=== PATIENT | male | born 1990 | race African-American/Black ===

== ENCOUNTER → 2018-01-08 | Day surgery (SDC) | payer OTHER ==
[~2018-01-08] MED LIST: BUPIVACAINE HCL 0.5 % INJ/PF 30 ML SDV ONE; CEFAZOLIN 2 GM/D5W RTU 2 GM/50 ML RTUPB IV PRN; DEXAMETHASONE SOD PHOSPHATE INJ 4 MG/1 ML VIAL ONE; EPHEDRINE SULFATE INJ 50 MG/1 ML AMPULE ONE; FENTANYL CITRATE INJ/PF 100 MCG/2 ML AMPUL ONE; HYDRALAZINE HCL INJ/PF 20 MG/1 ML SDV IV ONE; HYDRALAZINE HCL INJ/PF 20 MG/1 ML SDV ONE; HYDROMORPHONE HCL INJ/PF 2 MG/ML AMPULE ONE; MIDAZOLAM 2 MG/2 ML INJ ONE; ONDANSETRON 4 MG TAB.RAPDIS ONE; ONDANSETRON 4 MG TAB.RAPDIS PO ONE; ONDANSETRON HCL INJ/PF 4 MG/2 ML SDV ONE; PROPOFOL INJ 200 MG/20 ML VIAL IV ONE
--- NOTE | 2018-01-08 07:58 | RADIOLOGY REPORT (SQ) ---
EXAM DESCRIPTION: CHEST SINGLE VIEW COMPLETED DATE/TIME: 01/08/2018 7:46 am REASON FOR STUDY: preop COMPARISON: AP chest 07/26/2014 EXAM PARAMETERS: NUMBER OF VIEWS: One view. TECHNIQUE: Single frontal radiographic view of the chest acquired. RADIATION DOSE: NA LIMITATIONS: None. FINDINGS: LUNGS AND PLEURA: No opacities, masses or pneumothorax. No pleural effusion. MEDIASTINUM AND HILAR STRUCTURES: No masses. Contour normal. HEART AND VASCULAR STRUCTURES: Heart normal in size. Normal vasculature. BONES: No acute findings. HARDWARE: None in the chest. OTHER: No other significant finding. IMPRESSION: NO ACUTE RADIOGRAPHIC FINDING IN THE CHEST. TECHNICAL DOCUMENTATION: JOB ID: [id number] [employer]- All Rights Reserved Reading location - IP/workstation name: [email or web address]
[2018-01-08 08:02] LABS: HEMATOCRIT 36.5 % (37.9-51.0); HEMOGLOBIN 12.3 g/dL (13.5-17.0); MEAN CORPUSCULAR HEMOGLOBIN 28.7 pg (27.0-33.4); MEAN CORPUSCULAR HGB CONC 33.7 g/dL (32.0-36.0); MEAN CORPUSCULAR VOLUME 85 fl (80-97); PLATELET COUNT 238 10^3/uL (150-450); RED BLOOD COUNT 4.28 10^6/uL (4.35-5.55); RED CELL DISTRIBUTION WIDTH 11.8 % (11.5-14.0)
[2018-01-08 08:14] LABS: ANION GAP 14 (5-19); BLOOD UREA NITROGEN 26 mg/dL (7-20); CALCIUM 9.8 mg/dL (8.4-10.2); CARBON DIOXIDE 28 mmol/L (22-30); CHLORIDE 103 mmol/L (98-107); GLUCOSE 98 mg/dL (75-110); POTASSIUM 4.4 mmol/L (3.6-5.0); SODIUM 145.4 mmol/L (137-145)
[2018-01-08 08:21] LABS: APPEARANCE,URINE CLEAR; BILIRUBIN,URINE NEGATIVE (NEGATIVE); COLOR,URINE YELLOW; GLUCOSE, URINE NEGATIVE (NEGATIVE); KETONES,URINE NEGATIVE (NEGATIVE); LEUKOCYTE ESTERASE,URINE NEGATIVE (NEGATIVE); NITRITE,URINE NEGATIVE (NEGATIVE); PROTEIN,URINE NEGATIVE (NEGATIVE); URINE SPECIFIC GRAVITY 1.016; UROBILINOGEN,URINE NEGATIVE mg/dL (<2.0)
[2018-01-08] MEDS: HYDRALAZINE HCL INJ/PF 20 MG/1 ML SDV IV ONE ×2 (08:35→08:55)
[2018-01-08 10:13] VITALS: BP 168/112
--- NOTE | 2018-01-08 21:52 | EKG REPORT ---
SEVERITY:- NORMAL ECG - SINUS RHYTHM : Confirmed by: Lavinia Ochoa MD 08-Jan-2018 21:50:59
== END ==
LOC: OROUT 07:07
PROVIDERS: ATTEND Orthopaedic Surgery
DX: Z01.818 Encounter for other preprocedural examination (principal)
CPT/HCPCS: 36415; 85027; 80048; 81001; 71045; 93005; 93010; S0119; J0360; J0690; J1100; J1170; J2250; J2405; J2704; J3010; J3490

== ENCOUNTER 2018-01-13 06:53 | Day surgery (SDC) | payer OTHER ==
[~2018-01-13 06:53] MED LIST changes: -BUPIVACAINE HCL 0.5 % INJ/PF 30 ML SDV ONE; +CEFAZOLIN 2 GM/D5W RTU 2 GM/50 ML RTUPB IV ONE; -CEFAZOLIN 2 GM/D5W RTU 2 GM/50 ML RTUPB IV PRN; -DEXAMETHASONE SOD PHOSPHATE INJ 4 MG/1 ML VIAL ONE; -EPHEDRINE SULFATE INJ 50 MG/1 ML AMPULE ONE; -FENTANYL CITRATE INJ/PF 100 MCG/2 ML AMPUL ONE; -HYDRALAZINE HCL INJ/PF 20 MG/1 ML SDV IV ONE; -HYDRALAZINE HCL INJ/PF 20 MG/1 ML SDV ONE; -HYDROMORPHONE HCL INJ/PF 2 MG/ML AMPULE ONE; -MIDAZOLAM 2 MG/2 ML INJ ONE; -ONDANSETRON 4 MG TAB.RAPDIS ONE; -ONDANSETRON 4 MG TAB.RAPDIS PO ONE; -ONDANSETRON HCL INJ/PF 4 MG/2 ML SDV ONE; -PROPOFOL INJ 200 MG/20 ML VIAL IV ONE
[2018-01-13] MEDS ORDERED: BUPIVACAINE HCL 0.5 % INJ/PF 30 ML SDV ONE ×2 (07:26→11:05)
[2018-01-13] MEDS ORDERED: FENTANYL CITRATE INJ/PF 100 MCG/2 ML AMPUL ONE ×2 (09:59→12:14)
[2018-01-13] MEDS ORDERED: PROPOFOL INJ 200 MG/20 ML VIAL IV ONE (09:59)
[2018-01-13] MEDS ORDERED: FENTANYL CITRATE INJ/PF 250 MCG/5 ML AMPULE ONE (09:59)
[2018-01-13] MEDS ORDERED: MIDAZOLAM 2 MG/2 ML INJ ONE (09:59)
[2018-01-13] MEDS ORDERED: FENTANYL CITRATE INJ/PF 100 MCG/2 ML AMPUL IV PRN ×3 (11:22)
[2018-01-13] MEDS ORDERED: DIPHENHYDRAMINE HCL 50 MG/ML VIAL IV PRN (11:22)
[2018-01-13] MEDS ORDERED: MEPERIDINE HCL/PF INJ 25 MG/1 ML DISP.SYRIN IV PRN (11:22)
[2018-01-13] MEDS ORDERED: MORPHINE SULFATE 10 MG/ML INJ IV PRN (11:22)
[2018-01-13] MEDS ORDERED: PROMETHAZINE HCL INJ 25 MG/1 ML VIAL IV PRN (11:22)
[2018-01-13] MEDS ORDERED: DEXMEDETOMIDINE INJ 80 MCG/20 ML VIAL IV ONE (11:30)
[2018-01-13] MEDS ORDERED: OXYCODONE HCL IR 5 MG TABLET PO PRN (11:57)
--- NOTE | 2018-01-13 12:02 | Operative Report ---
Operative Report DATE OF SURGERY: 01/13/18 PREOPERATIVE DIAGNOSIS: Left quadriceps tendon disruption OPERATION: Repair left quadriceps tendon and extensor mechanism SURGEON: SYLWIA RIELAND ANESTHESIA: GA TISSUE REMOVED OR ALTERED: Cultures to microbiology ESTIMATED BLOOD LOSS: Minimal PROCEDURE: The patient supine on the operative table left lower extremities prepped and draped in sterile fashion. The lid the existing jf are removed. The underlying laceration is opened and cultures are obtained. The laceration goes through the quadriceps tendon but does not enter the knee space. The edges were meticulously debrided. The incision and then extended proximally and medially and distally and laterally to expose the lacerated tendon. #2 FiberWire was then used to repair the quadriceps tendon in a pants over vest type fashion. A piece of polypropylene mesh is then cut to fit the anterior surface of the knee and sewed in place with interrupted Vicryl. At this point the tourniquet is deflated. The wound is irrigated. Hemostasis obtained with electrocautery. The wound is then closed in layers using interrupted Vicryl followed by nylon. A sterile compressive dressings applied and the patient's return to PACU in satisfactory condition.
--- NOTE | 2018-01-13 12:08 | Discharge Summary ---
Discharge Summary (SDC) - Discharge Final Diagnosis: Left quadriceps tendon disruption Date of Surgery: 01/13/18 Condition: Good Prescriptions: Oxycodone HCl [Oxy-Ir 5 mg Tablet] 5 mg PO Q6HP PRN #60 tablet PRN Reason: Aspirin [Aspirin 81 mg Chewable Tablet] 81 mg PO DAILY #35 tab.chew Referrals: JAVY MANJARREZ PA-C [Primary Care Provider] - Respiratory Treatments at Home: Deep Breathing/Coughing, Incentive Spirometer Discharge Activity: Balance Activity w/Rest, No Driving, No tub bath Home Care Assistance: Provided by Family Adaptive Devices on Discharge: Axillary Crutches Report the Following to Your Physician Immediately: Shortness of Breath, Fever over 101 Degrees, Drainage-Foul Smelling
[2018-01-13] MEDS ORDERED: ONDANSETRON 4 MG TAB.RAPDIS SL PRN (12:15)
[2018-01-13 14:46] VITALS: BP 136/80
[2018-01-13] MEDS ORDERED: GLYCOPYRROLATE INJ 0.4 MG/2 ML VIAL ONE (16:53)
[2018-01-13] MEDS ORDERED: SUCCINYLCHOLINE CHLORIDE INJ 200 MG/10 ML VIAL ONE (16:53)
[2018-01-13] MEDS ORDERED: DEXAMETHASONE SOD PHOSPHATE INJ 4 MG/1 ML VIAL ONE (16:53)
[2018-01-13] MEDS ORDERED: ONDANSETRON HCL INJ/PF 4 MG/2 ML SDV ONE (16:53)
[2018-01-14] MEDS ORDERED: ASPIRIN 81 MG TABLET, CHEWABLE PO SCH (10:00)
== END 2018-01-13 13:50 | disposition home or self-care (01) ==
LOC: OROUT 06:53
PROVIDERS: ATTEND Orthopaedic Surgery
DX: S76.192A Other specified injury of left quadriceps muscle, fascia and tendon, initial encounter (principal); W27.0XXA Contact with workbench tool, initial encounter; Z87.891 Personal history of nicotine dependence; I10 Essential (primary) hypertension; Z01.818 Encounter for other preprocedural examination
CPT/HCPCS: 87070; 87205; 87075; 87077; 87186; 27385; L1830; C1781; J2250; J3490 ×2; J1100; J3010 ×2; J0330; J2405; J2704; J0690; 1320